=== PATIENT | male | born 1945 | race Hispanic/Latino ===

== ENCOUNTER → 2024-03-06 | Outpatient (CLI) | payer OTHER ==
--- NOTE | 2024-03-07 08:30 | HMCSR ---
APPROVED REPORT EXAM: Two-dimensional and M-mode echocardiogram with Doppler and color Doppler. INDICATION ICD: Cardiac murmur, unspecified R01.1 RISK FACTORS Hypertension Hyperlipidemia 2D Dimensions RVDd3.9 cmLVEF(%)57.9 (>50%)LVED Vol(simp.)115.0 mL IVSd1.0 (0.7-1.1cm)FS(%)31 %LVES Vol(simp.)48.0 mL LVDd4.9 (3.8-5.6cm)Ao Root(2D)3.1 (2.0-3.7cm)LVEF(%, simp.)58 % PWd1.0 (0.7-1.1cm)LVOT diam2.1 (1.8-2.4cm)LA ESV INDEX (BP)46.29 mL/m2 LVDs3.4 (2.5-4.0cm)IVC diam2.0 cm Aortic Valve AoV Vmax1.1 m/Celine Peak GR4.9 mmHgLVOT Vmax0.8 m/s AoV VTI0.3 mAo Mean GR2.6 mmHgLVOT VTI0.20 m WADE (VMAX)2.6 cm2Al P1/2T602 msAVA (VTI) 2.6 cm2 Mitral Valve MV E Vmax55.7 cm/sDECEL Upax737 ms MV A Vmax44.6 cm/sP 1/2 T40 ms E/A ratio1.2MVA (PHT)5.5 cm2 MR Max PG93 mmHg TDI E/E' Medial7.9E/E' Lateral6.2 Pulmonary Valve PV Vmax0.7 m/sPV VTI0.20 mPV Mean GR1 mmHg PV Peak GR2.2 mmHgPI End Krista. Neno 2.0 cm/s Tricuspid Valve TR Vmax2.7 m/sRAP (EST) 8 ebTbFSFH68.4 mmHg TR Peak GR28.4 mmHg Left Ventricle Left ventricular cavity size is normal. There is normal LV segmental wall motion. There is normal lef t ventricular wall thickness. LVEF is 55-60%. Left ventricular filling pattern is normal for age. Right Ventricle The right ventricle is normal size. The right ventricular systolic function is normal. Atria The left atrium is moderately dilated. The right atrium size is normal. Aortic Valve Aortic valve is trileaflet. Aortic valve leaflets are sclerotic but open well. Mild aortic regurgitat ion. There is no aortic valvular stenosis. Mitral Valve Mitral valve leaflets are sclerotic but open well. Mitral regurgitation is trace to mild. There is no mitral valve stenosis. Tricuspid Valve The tricuspid valve leaflets appear normal. There is mild to moderate tricuspid regurgitation. Right ventricular systolic pressure is estimated at 30-40 mmHg. Pulmonic Valve The pulmonic valve leaflets are thin and pliable; valve motion is normal. There is mild valvular regu rgitation. Great Vessels The aortic root is normal in size. IVC is dilated and collapses >50% with inspiration. Pericardium No pericardial effusion. Conclusion LVEF is 55-60%. Mild aortic regurgitation. Mitral regurgitation is trace to mild. There is mild to moderate tricuspid regurgitation. Right ventricular systolic pressure is estimated at 30-40 mmHg.
== END | disposition home or self-care (01) ==
LOC: SHCH 10:09
PROVIDERS: ATTEND Internal Medicine Cardiovascular Disease
DX: I08.8 Other rheumatic multiple valve diseases (principal); I11.9 Hypertensive heart disease without heart failure; R01.1 Cardiac murmur, unspecified; E78.5 Hyperlipidemia, unspecified
CPT/HCPCS: 93306

== ENCOUNTER → 2024-04-09 | Outpatient (CLI) | payer OTHER ==
[2024-04-09 16:33] LABS: CREATININE 1.2 mg/dL (0.5-1.3); MAGNESIUM 2.2 mg/dL (1.80-2.40); POTASSIUM 4.3 mmol/L (3.5-5.1)
== END | disposition home or self-care (01) ==
LOC: LAB 15:47
PROVIDERS: ATTEND Internal Medicine Cardiovascular Disease
DX: R00.1 Bradycardia, unspecified (principal)
CPT/HCPCS: 36415; 80048; 83735

== ENCOUNTER → 2024-05-10 | Outpatient (CLI) | payer OTHER ==
[2024-05-10 12:49] LABS: MAGNESIUM 2.1 mg/dL (1.80-2.40); POTASSIUM 4.5 mmol/L (3.5-5.1)
== END | disposition home or self-care (01) ==
LOC: LAB 08:45
PROVIDERS: ATTEND Internal Medicine Cardiovascular Disease
DX: R00.1 Bradycardia, unspecified (principal)
CPT/HCPCS: 36415; 80048; 83735

== ENCOUNTER → 2024-06-04 | Outpatient (CLI) | payer OTHER ==
--- NOTE | 2024-06-04 15:57 | HMCIMG ---
CT HEART SAVER PROMOTIONAL HISTORY: Calcium scoring COMPARISON: None TECHNIQUE: Computed tomography of the heart was performed with ECG gating and suspended respiration. Postprocessing was performed on a computer workstation to obtain diastolic phase images, determine calcium score and provide a quantitative assessment of extent of disease. This CT included only the heart. HeartSaver score is 1355.6. Please see cardiac calcium score report. The available CT chest images show no acute finding. CT was performed with one or more following dose reduction techniques: automated exposure control, adjustment of the mA and kv according to patient's size, or use of a iterative reconstruction technique.
== END | disposition home or self-care (01) ==
LOC: RAH 13:58
PROVIDERS: ATTEND Internal Medicine Cardiovascular Disease
DX: Z13.6 Encounter for screening for cardiovascular disorders (principal)
CPT/HCPCS: 75571